=== PATIENT | male | born 1975 | race Caucasian/White ===

== ENCOUNTER 2019-04-01 05:13 | Emergency (ER) | payer MEDICAID ==
[~2019-04-01] VITALS: Ht 180.3 cm; Wt 81.8 kg
[2019-04-01] MEDS ORDERED: TETanus/Pertussis (Acell)/Diphther VAC/PF (Tdap-Adult) 0.5ml syringe IM ONE (05:35)
[2019-04-01] MEDS ORDERED: LIDOcaine 1% w/epiNEPHrine 1:200,000 30ml vial IM ONE (05:35)
[2019-04-01] MEDS ORDERED: HYDROcodone/acetaminophen 5mg/325mg tablet PO STA (06:08)
[2019-04-01] MEDS ORDERED: CEPH500C5 PO (06:20)
[2019-04-01] MEDS ORDERED: HYDR-3965 PO (06:20)
[2019-04-01 06:41] VITALS: BP 126/76
== END 2019-04-01 07:20 | disposition home or self-care (01) ==
LOC: ER 05:13
DX: S56.126A Laceration of flexor muscle, fascia and tendon of left ring finger at forearm level, initial encounter (principal); S61.213A Laceration without foreign body of left middle finger without damage to nail, initial encounter; W26.8XXA Contact with other sharp object(s), not elsewhere classified, initial encounter; Y93.89 Activity, other specified; Y92.89 Other specified places as the place of occurrence of the external cause; Y99.8 Other external cause status
CPT/HCPCS: 12001; 73140; 90471; 90715; 99284; J3490